=== PATIENT | male | born 1960 | race Caucasian/White ===

== ENCOUNTER → 2023-03-25 08:43 | Outpatient (CLI) | payer OTHER, SELFPAY ==
--- NOTE | ~2023-03-25 | US_ITS ---
EXAMINATION: US scrotum doppler DATE: 03/25/2023 09:06 INDICATION: Other specified disorders of the male genitalia. TECHNIQUE: Grayscale and Doppler ultrasound images of the testes were obtained. COMPARISON: None. FINDINGS: The right testis measures 5.4 x 3.2 x 2.9 cm. The left testis measures 4.8 x 3.5 x 2.7 cm. There is normal vascular flow to both testes. The right epididymis demonstrates an 8 mm benign cyst. The left epididymis is normal with normal vascular flow. There is a small right hydrocele. There are bilateral varicoceles. IMPRESSION: 1. Small right hydrocele. 2. Bilateral varicoceles. Reviewed, dictated and finalized at location E.
== END ==
PROVIDERS: PCP Family Medicine; Visit Provider Family Medicine
DX: N50.89 Other specified disorders of the male genital organs (principal); N43.3 Hydrocele, unspecified; I08.3 Combined rheumatic disorders of mitral, aortic and tricuspid valves
CPT/HCPCS: 76870; 93976

== ENCOUNTER 2023-06-02 03:56 | Day surgery (SDC) | payer OTHER, SELFPAY ==
[2023-05-07 09:53] VITALS: BMI 30.2
--- NOTE | 2023-05-30 09:59 | SUR.PREOP ---
Patient called regarding upcoming procedure. Reviewed preop instructions, appointment times, and procedure prep.
[2023-06-02 06:44] VITALS: BP 143/79; PULSE 86; RESP 18; TEMP 36.1; O2SAT 97
[2023-06-02] MEDS: LACTATED RINGERS 1,000 ML 150 ML IV CONT (06:53)
--- NOTE | 2023-06-02 07:46 | WPDANESEPPF ---
Anes - Initial Pre Proc Eval Procedure: Operation Date: 06/02/23 08:00 Proposed Procedures p Screening Colonoscopy - Waldemar Waters MD Date/Time: 06/02/23 07:46 Surgeon: Waldemar Waters MD Pre Op Diagnosis: neoplasm screening Patient Data Age: 63 Gender: M Height: 1.78 m Weight: 96.3 kg Last Vital Signs Temp 97 F L 06/02/23 06:44 Pulse 86 06/02/23 06:44 Resp 18 06/02/23 06:44 BP 143/79 H 06/02/23 06:44 Pulse Ox 97 06/02/23 06:44 O2 Del Method Room Air 06/02/23 06:44 Allergies Allergy/AdvReac Type Severity Reaction Status Date / Time No Known Allergies Allergy Verified 06/02/23 06:44 Home Medications Medication Instructions Recorded Confirmed Type cholecalciferol (vitamin D3) 25 25 mcg PO DAILY 01/04/20 05/07/23 History mcg (1,000 unit) tablet omega 7-slt-uas-fish oil 1,200 mg 1 cap PO TID 01/04/20 05/07/23 History (144 mg-216 mg) capsule (Fish Oil) saw palmetto 160 mg capsule 160 mg PO BID 01/04/20 05/07/23 History vitamin B complex (B 1 tablet PO DAILY 01/04/20 05/07/23 History Complex-Vitamin B12 tablet) diphenhydramine HCl 25 mg tablet 25 mg PO ONCE PRN Sinus Symptoms 07/07/20 05/07/23 History (Benadryl Allergy) mometasone 0.1 % topical cream 1 applic topical DAILY 02/05/22 05/07/23 History sildenafil 100 mg tablet 100 mg PO DAILY PRN sexual 02/11/23 05/07/23 Rx activity #20 tabs atorvastatin 10 mg tablet 10 mg PO DAILY #90 tabs 04/14/23 05/07/23 Rx omeprazole magnesium 20 mg 20 mg PO DAILY 05/07/23 05/07/23 History tablet,delayed release (Prilosec OTC) meloxicam 15 mg tablet 15 mg PO DAILY #90 tabs 05/12/23 Rx Patient hx anesthesia problems: none Family hx anesthesia problems: none Results Review: All pre-operative results and documents have been reviewed as part of the pre-operative evaluation. [facility] Past Medical History Medical History Broken leg (~1976) Hepatitis C antibody test negative (01/25/17) Surgical History Surgical History History of appendectomy (~2000) Family History Family History Mother Diabetes mellitus, Onset Age: 76 Hypertension, Onset Age: 76 Family history of elevated blood lipids Father Family history of congestive heart failure, Onset Age: 67 Diabetes mellitus Hypertension Family history of elevated blood lipids Social History Social History (Updated 02/11/23 @ 09:00 by Haley Hercules MA) Smoking status: Never smoker Alcohol intake: current Drinks per week: 4 Alcohol use details: Beer with dinner Substance use: never Substance use type: does not use Lack of Transportation: No Lack of Food: Never True Current Housing: I Have Housing Concerned About Future Housing: No Difficulty Paying Gas/Electric Bills: No Difficulty Paying for Meds: No Currently Unemployed: No Education: Master's Degree or Higher Difficulty w/ Childcare or Family Care: No Living arrangements: with family Occupation/Education: occupation Gender identity (if verbalized by the patient): Male Spiritual care concerns: No Anes - Eval Final PreProcedure Day of Procedure 06/02/23 07:46 Patient weight: normal Heart: regular rate and rhythm Lungs: clear to auscultation Airway: Mallampati scale class II Neurological: alert and oriented Last oral intake: >/= 8 hours ASA classification: II Emergent: no Anesthetic plan: proceed Anesthesia type and monitoring: general GIVS and standard monitoring Results Review: All pre-operative results and documents have been reviewed as part of the pre-operative evaluation. Informed Consent: The patient's anesthetic plan and its attendant risks and benefits were discussed with the patient/family/POA. Questions were solicited and answers provided
--- NOTE | 2023-06-02 08:25 | PM.HPGS ---
History of Present Illness History of Present Illness Consent: Risks, benefits, and alternatives have been discussed and questions answered. Patient agrees to proceed with procedure. Chief complaint: neoplasm screening Narrative: Cleveland Olivo Jr. is a 63 year old male here for screening colonoscopy, last one 6 years ago Review of Systems Constitutional: Constitutional: Denies headache(s) and Denies weakness Eyes: Eyes: Denies blurry vision ENT: Reports Normal hearing present, Denies headache(s) and Denies neck pain Cardiovascular: Cardiovascular: Denies chest pain and Denies dyspnea Respiratory: Respiratory: Denies dyspnea Gastrointestinal: Gastrointestinal: Reports no additional gastrointestinal complaints Genitourinary: Genitourinary: Denies dysuria Musculoskeletal: Musculoskeletal: Denies neck pain Integumentary/Breasts: Skin/Breast: Denies dry skin Neurologic: Reports Normal hearing present, Denies headache(s) and Denies weakness Psychiatric: Psychiatric: Denies anxiety Endocrine: Endocrine: Denies change in body appearance Hematologic/Lymphatic: Hematologic/Lymphatic: Denies easy bleeding Allergic/Immunologic: Allergic/Immunologic: Denies urticaria PMFSH Past Medical History Medical History Broken leg (~1976) Hepatitis C antibody test negative (01/25/17) Surgical History Surgical History History of appendectomy (~2000) Family History Family History Mother Diabetes mellitus, Onset Age: 76 Hypertension, Onset Age: 76 Family history of elevated blood lipids Father Family history of congestive heart failure, Onset Age: 67 Diabetes mellitus Hypertension Family history of elevated blood lipids Social History Social History (Updated 02/11/23 @ 09:00 by Haley Hercules MA) Smoking status: Never smoker Alcohol intake: current Drinks per week: 4 Alcohol use details: Beer with dinner Substance use: never Substance use type: does not use Lack of Transportation: No Lack of Food: Never True Current Housing: I Have Housing Concerned About Future Housing: No Difficulty Paying Gas/Electric Bills: No Difficulty Paying for Meds: No Currently Unemployed: No Education: Master's Degree or Higher Difficulty w/ Childcare or Family Care: No Living arrangements: with family Occupation/Education: occupation Gender identity (if verbalized by the patient): Male Spiritual care concerns: No Meds Home Medications and Allergies Home Medications Medication Instructions Recorded Confirmed Type cholecalciferol (vitamin D3) 25 25 mcg PO DAILY 01/04/20 05/07/23 History mcg (1,000 unit) tablet omega 4-ulr-xqh-fish oil 1,200 mg 1 cap PO TID 01/04/20 05/07/23 History (144 mg-216 mg) capsule (Fish Oil) saw palmetto 160 mg capsule 160 mg PO BID 01/04/20 05/07/23 History vitamin B complex (B 1 tablet PO DAILY 01/04/20 05/07/23 History Complex-Vitamin B12 tablet) diphenhydramine HCl 25 mg tablet 25 mg PO ONCE PRN Sinus Symptoms 07/07/20 05/07/23 History (Benadryl Allergy) mometasone 0.1 % topical cream 1 applic topical DAILY 02/05/22 05/07/23 History sildenafil 100 mg tablet 100 mg PO DAILY PRN sexual 02/11/23 05/07/23 Rx activity #20 tabs atorvastatin 10 mg tablet 10 mg PO DAILY #90 tabs 04/14/23 05/07/23 Rx omeprazole magnesium 20 mg 20 mg PO DAILY 05/07/23 05/07/23 History tablet,delayed release (Prilosec OTC) meloxicam 15 mg tablet 15 mg PO DAILY #90 tabs 05/12/23 Rx Allergies Allergy/AdvReac Type Severity Reaction Status Date / Time No Known Allergies Allergy Verified 06/02/23 06:44 Vital Signs Vital Signs - 24 hr 06/02/23 06:44 Temperature 97 F L Pulse Rate 86 Respiratory Rate 18 Blood Pressure 143/79 H Pulse Oximetry 97 Oxygen Delive
[2023-06-02 08:45] VITALS: BP 88/58; PULSE 62; RESP 18; O2SAT 95
[2023-06-02 08:55] VITALS: BP 101/62; PULSE 60; RESP 18; O2SAT 95
[2023-06-02 09:03] VITALS: BP 110/72; PULSE 60; RESP 18; O2SAT 96
== END 2023-06-02 09:17 | disposition home or self-care (01) ==
PROVIDERS: PCP Family Medicine; Visit Provider Internal Medicine Gastroenterology
PROC: 0DJD8ZZ Inspection of Lower Intestinal Tract, Via Natural or Artificial Opening Endoscopic (ICD-10-PCS; CPT 45378; principal; 2023-06-02 08:00)
DX: Z12.11 Encounter for screening for malignant neoplasm of colon (principal); K64.8 Other hemorrhoids; Z82.49 Family history of ischemic heart disease and other diseases of the circulatory system
CPT/HCPCS: 45378; J2704; J7120

== ENCOUNTER 2023-07-22 11:28 | Emergency (ER) | payer OTHER, SELFPAY ==
[2023-07-22 11:34] VITALS: BP 175/77; PULSE 99; RESP 20; TEMP 36.6; O2SAT 99
[2023-07-22 12:15] VITALS: BP 142/80; PULSE 84; RESP 18; TEMP 36.9; O2SAT 98
--- NOTE | 2023-07-22 12:25 | ED.MALEGU ---
HPI - Male Genitourinary General Chief complaint: Urogenital-Male Stated complaint: UTI- urinary retention Time Seen by Provider: 07/22/23 11:58 History of Present Illness HPI Narrative: This is a 63-year-old male, with no significant past medical history, who presents to the emergency department complaining suprapubic abdominal pain and difficulty urinating for the past day. The patient states his symptoms began yesterday, when he felt the urge to urinate but could not. He rated his pain 8/10 described as dull and intermittently cramping. He was seen at an outside urgent care; he was given an IM antibiotic injection was able to give a urine sample. He states overnight, he had 1 episode fever to 104 that has since resolved. He denies lower extremity weakness, loss of bowel or bladder control, or back pain. He has no other complaints at this time. Related Data Home Medications Medication Instructions Recorded Confirmed cholecalciferol (vitamin D3) 25 25 mcg PO DAILY 01/04/20 05/07/23 mcg (1,000 unit) tablet omega 6-jat-lwa-fish oil 1,200 mg 1 cap PO TID 01/04/20 05/07/23 (144 mg-216 mg) capsule (Fish Oil) saw palmetto 160 mg capsule 160 mg PO BID 01/04/20 05/07/23 vitamin B complex (B 1 tablet PO DAILY 01/04/20 05/07/23 Complex-Vitamin B12 tablet) diphenhydramine HCl 25 mg tablet 25 mg PO ONCE PRN Sinus Symptoms 07/07/20 05/07/23 (Benadryl Allergy) mometasone 0.1 % topical cream 1 applic topical DAILY 02/05/22 05/07/23 omeprazole magnesium 20 mg 20 mg PO DAILY 05/07/23 05/07/23 tablet,delayed release (Prilosec OTC) Allergies Allergy/AdvReac Type Severity Reaction Status Date / Time No Known Allergies Allergy Verified 06/02/23 06:44 Review of Systems Review of Systems: CONSTITUTIONAL: Fever x1-resolved Denies chills, or sweats. CARDIOVASCULAR: Denies chest pain, palpitations, or edema. RESPIRATORY: Denies cough or dyspnea. GASTROINTESTINAL: Suprapubic abdominal pain Denies nausea, vomiting, or diarrhea. GENITOURINARY: Difficulty urinating Denies dysuria or hematuria. SKIN: Denies rash or itching. MUSCULOSKELETAL: Denies back pain, joint pain, or myalgia. NEUROLOGIC: Denies headache, numbness, dizziness, or weakness. PSYCHIATRIC: Denies anxiety or depression. PMFSH Past Medical History Medical History Broken leg (~1976) Hepatitis C antibody test negative (01/25/17) Surgical History Surgical History History of appendectomy (~2000) Family History Family History Mother Diabetes mellitus, Onset Age: 76 Hypertension, Onset Age: 76 Family history of elevated blood lipids Father Family history of congestive heart failure, Onset Age: 67 Diabetes mellitus Hypertension Family history of elevated blood lipids Social History Social History Smoking status: Never smoker Alcohol intake: current Drinks per week: 4 Alcohol use details: Beer with dinner Substance use: never Substance use type: does not use Lack of Transportation: No Lack of Food: Never True Current Housing: I Have Housing Concerned About Future Housing: No Difficulty Paying Gas/Electric Bills: No Difficulty Paying for Meds: No Currently Unemployed: No Education: Master's Degree or Higher Difficulty w/ Childcare or Family Care: No Living arrangements: with family Occupation/Education: occupation Gender identity (if verbalized by the patient): Male Spiritual care concerns: No Exam Narrative: GENERAL: Well-developed, well-nourished, and in no acute distress. HEAD: Normocephalic, atraumatic. CHEST: Clear to auscultation. No respiratory distress. No wheezes rales or rhonchi HEART: Regular rate and rhythm. No murmur heard. Normal peripheral pulses. ABDOMEN: Soft,
[2023-07-22 12:27] LABS: Appearance Urine Clear (Clear); Bacteria Urine 4+ /hpf; Bilirubin Urine Negative (Negative); Color Urine Yellow (Yellow); Glucose Urine UA Negative (Negative); Ketones Urine Trace mg/dL (Negative); Leukocyte Esterase Ur Negative LEU/UL (Negative); Nitrate Urine Negative (Negative); Non Pathogenic Casts 0-2; Protein Urine Trace mg/dL (Negative); Specific Grav Ur 1.023 (1.001-1.035); Squamous Epithelial Cell Urine None seen /hpf (Few); WBC Urine 0-5 /hpf; pH Urine 6.5 (5.0-9.0)
[2023-07-22 12:34] LABS: Add Urine Microscopic? YES
[2023-07-22 13:15] VITALS: BP 145/80; PULSE 79; RESP 18; TEMP 36.7; O2SAT 97
--- NOTE | 2023-07-22 14:17 | PC.NURSE ---
Saavedra converted to leg bag. Home care discussed with pt and family. Offers no questions or concerns.
[2023-07-22 14:18] VITALS: BP 129/71; PULSE 82; O2SAT 98
== END 2023-07-22 14:20 | disposition home or self-care (01) ==
PROVIDERS: Emergency Provider Preventive Medicine Aerospace Medicine; PCP Family Medicine
DX: N30.00 Acute cystitis without hematuria (principal)
CPT/HCPCS: 51702; 81001; 99283

== ENCOUNTER 2023-07-25 16:39 | Emergency (ER) | payer OTHER, SELFPAY ==
--- NOTE | ~2023-07-25 | CT_ITS ---
EXAMINATION: CT abdomen pelvis w con INDICATION: Suprapubic pain, urinary retention TECHNIQUE: Computed tomographic images of the abdomen and pelvis were obtained after the administrati on of 100 cc of Omnipaque 350 intravenous contrast. The dose-length product (DLP) was 702.43 mGy-cm. Automated exposure control and iterative reconstruction technique were employed. COMPARISON: None available FINDINGS: Minimal dependent atelectasis is present in the lung bases. The heart size is normal. There is calcified coronary artery atherosclerosis. Cysts of the liver measure up to 12 mm in the left hep atic lobe. The spleen, pancreas, gallbladder, and adrenal glands are normal. Cysts of the kidneys sol sure up to 1.6 cm on the left. The bladder is decompressed by Saavedra catheter. No pathologically enlar ged abdominal or pelvic lymph nodes are identified. No free intraperitoneal gas or evidence of bowel obstruction. The appendix is normal. There is mild fat stranding surrounding the urinary bladder whic h could reflect cystitis. There is a left inguinal hernia containing fat. There is moderate lumbar sp ondylosis at L5-S1. IMPRESSION: 1. Mild fat stranding surrounding the urinary bladder which could reflect cystitis. Reviewed, dictated and finalized at location F. [employer] IMPRESSION: 1. Mild fat stranding surrounding the urinary bladder which could reflect cysti tis.
--- NOTE | 2023-07-25 17:13 | ED.GENADULT ---
HPI - General Adult General Chief complaint: Urogenital-Male Stated complaint: abdomen pain Time Seen by Provider: 07/25/23 17:04 Source: patient Mode of arrival: ambulatory Limitations: no limitations History of Present Illness HPI narrative: This is a 63-year-old male who presents to the ED with chief complaint of lower abdominal pain and urinary retention ongoing for the past day. Reports he was here couple of days ago and got sent home with Saavedra catheter due to urinary retention. States he had appointment with Urology yesterday who removed Saavedra catheter. He was scheduled to get CT scan next week but came in due to the pain in inability urinate. He was told he had an infection during his recent visit has been taking his ciprofloxacin as prescribed. Endorses will low-grade fevers. Denies S vomiting, diarrhea, flank pain, problems with bowel movements. Denies groin pain scrotal pain or swelling. Related Data Home Medications Medication Instructions Recorded Confirmed cholecalciferol (vitamin D3) 25 25 mcg PO DAILY 01/04/20 05/07/23 mcg (1,000 unit) tablet omega 9-gsb-zco-fish oil 1,200 mg 1 cap PO TID 01/04/20 05/07/23 (144 mg-216 mg) capsule (Fish Oil) saw palmetto 160 mg capsule 160 mg PO BID 01/04/20 05/07/23 vitamin B complex (B 1 tablet PO DAILY 01/04/20 05/07/23 Complex-Vitamin B12 tablet) diphenhydramine HCl 25 mg tablet 25 mg PO ONCE PRN Sinus Symptoms 07/07/20 05/07/23 (Benadryl Allergy) mometasone 0.1 % topical cream 1 applic topical DAILY 02/05/22 05/07/23 omeprazole magnesium 20 mg 20 mg PO DAILY 05/07/23 05/07/23 tablet,delayed release (Prilosec OTC) Allergies Allergy/AdvReac Type Severity Reaction Status Date / Time No Known Allergies Allergy Verified 06/02/23 06:44 Review of Systems Review of Systems: All systems as dictated in [facility] Past Medical History Medical History Broken leg (~1976) Hepatitis C antibody test negative (01/25/17) Surgical History Surgical History History of appendectomy (~2000) Family History Family History Mother Diabetes mellitus, Onset Age: 76 Hypertension, Onset Age: 76 Family history of elevated blood lipids Father Family history of congestive heart failure, Onset Age: 67 Diabetes mellitus Hypertension Family history of elevated blood lipids Social History Social History Smoking status: Never smoker Alcohol intake: current Drinks per week: 4 Alcohol use details: Beer with dinner Substance use: never Substance use type: does not use Lack of Transportation: No Lack of Food: Never True Current Housing: I Have Housing Concerned About Future Housing: No Difficulty Paying Gas/Electric Bills: No Difficulty Paying for Meds: No Currently Unemployed: No Education: Master's Degree or Higher Difficulty w/ Childcare or Family Care: No Living arrangements: with family Occupation/Education: occupation Gender identity (if verbalized by the patient): Male Spiritual care concerns: No Exam Narrative: GENERAL: Well-appearing, well-nourished. Appears in pain HEAD: Normocephalic, atraumatic. EYES: PERRLA and EOMI. ENT: Nares clear, no rhinorrhea or epistaxis. Mucous membranes moist. Oropharynx without tonsillar hypertrophy exudate or other lesions. NECK: Supple. No adenopathy or masses. CHEST: No respiratory distress. Clear to auscultation. No wheezes rales or rhonchi HEART: Regular rate and rhythm. No murmur heard. Normal peripheral pulses. ABDOMEN: Suprapubic abdomen tenderness present. Negative flank tenderness bilaterally. Soft, nondistended, normal active bowel sounds. MSK: Normal range of motion. No edema. SKIN: Warm, dry, no rash. NEURO: Alert and oriented x
[2023-07-25 17:20] VITALS: BP 144/75; PULSE 81; RESP 18; TEMP 37.7; O2SAT 96
[2023-07-25] MEDS: KETOROLAC 30 MG/ML VIAL (*BKC) IV PUSH (17:28)
[2023-07-25 17:30] LABS: Basophils Percent Auto 0.2 % (0.2-1.2); Eosinophils Percent Auto 0.4 % (0-4.4); Hematocrit 43.4 % (42.0-52.0); Hemoglobin 14.7 g/dL (14.0-18.0); Immature Granulocyte Absolute 0.03 K/mm3 (0.00-0.031); Immature Granulocyte Percent A 0.3 % (0-0.5); Lymphocytes Absolute Auto 1.15 K/mm3 (0.9-3.2); Lymphocytes Percent Auto 11.9 % (18.3-44.2); Mean Corpuscular HGB Conc 33.9 g/dl (32-36); Mean Corpuscular Hemoglobin 31.8 pg (26-34); Mean Corpuscular Volume 93.9 fl (80-100); Mean Platelet Volume 8.9 fl (7.4-10.4); Monocytes Absolute Auto 1.1 K/mm3 (0.1-0.6); Neutrophils Absolute Auto 7.4 K/mm3 (1.3-6.7); Neutrophils Percent Auto 76.2 % (45.5-73.1); Platelet Count Result 203 k/mm3 (150-375); Red Blood Count 4.62 M/mm3 (4.6-6.20); Red Cell Distribution Width 12.6 % (11.5-14.5); White Blood Count 9.7 K/mm3 (4.5-10.0)
[2023-07-25 17:41] LABS: Alanine Aminotransferase 26 U/L (6-50); Albumin Level 4.3 g/dL (3.5-5.1); Alkaline Phosphatase 102 U/L (38-126); Anion Gap 9 mmol/L (8-16); Aspartate Amino Transferase 37 U/L (17-59); Bilirubin,Total 0.6 mg/dL (0.2-1.3); Blood Urea Nitrogen 24 mg/dL (9-20); Calcium 9.6 mg/dL (8.4-10.2); Carbon Dioxide 26 mmol/L (22-30); Chloride 104 mmol/L (98-107); Estimated CRCL calculation 86 ml/min; Estimated Glomerular Filt Rate > 60; Glucose 125 mg/dL (65-110); Lipase 35 U/L (23-300); Potassium 3.8 mmol/L (3.4-5.0); Sodium 139 mmol/L (137-145)
[2023-07-25 17:57] LABS: Add Urine Microscopic? YES; Appearance Urine Clear (Clear); Bacteria Urine None Seen /hpf; Bilirubin Urine 1+ (Negative); Blood Urine 1+ (Negative); Color Urine Dark Yellow (Yellow); Glucose Urine UA Negative (Negative); Ketones Urine Negative (Negative); Leukocyte Esterase Ur 1+ LEU/UL (Negative); Need Manual Microscopic Reviewed; Nitrate Urine Positive (Negative); Non Pathogenic Casts 0-2; Protein Urine Trace mg/dL (Negative); Specific Grav Ur 1.024 (1.001-1.035); Squamous Epithelial Cell Urine None seen /hpf (Few); WBC Urine 0-5 /hpf; pH Urine 6.5 (5.0-9.0)
[2023-07-25 18:16] LABS: Lactic Acid Reflex 1.4 mmol/L (0.7-2.0)
[2023-07-25 18:55] VITALS: BP 126/71; PULSE 70; RESP 16; O2SAT 98
[2023-07-25] MEDS: SODIUM CHLORIDE 0.9% IV 1,000 ML 999 ML IV CONT (19:26)
[2023-07-25] MEDS: ACETAMINOPHEN 325 MG TABLET 650 MG PO (19:26)
[2023-07-25 20:39] VITALS: BP 125/67; PULSE 81; RESP 17; O2SAT 96
== END 2023-07-25 20:59 | disposition home or self-care (01) ==
PROVIDERS: Emergency Provider Physician Assistant; PCP Family Medicine
DX: N39.0 Urinary tract infection, site not specified (principal)
CPT/HCPCS: 36415; 51702; 74177; 80053; 81001; 83605; 83690; 85025; 96361; 96365; 96375; 99284; A9270; J0696; J1885; J7030; Q9967